=== PATIENT | female | born 1985 | race Hispanic/Latino ===

== ENCOUNTER 2017-03-19 14:47 | Emergency (ER) | payer SELFPAY ==
[2017-03-19 14:56] VITALS: BP 114/73
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
== END 2017-03-19 16:39 | disposition left against medical advice (07) ==
LOC: ED 14:47
DX: M54.9 Dorsalgia, unspecified (principal); Z53.21 Procedure and treatment not carried out due to patient leaving prior to being seen by health care provider